=== PATIENT | female | born 1930 | race Asian ===

== ENCOUNTER 2018-09-13 12:41 | Emergency (ER) | payer OTHER, MEDICAID ==
[~2018-09-13] VITALS: Ht 152.4 cm; Wt 65.8 kg
[~2018-09-13 12:41] MED LIST: ACET-1082 PO; ALEN70TA PO; FURO-570 PO; GLU500 PO; PIOG30TA PO; POTA10TE30 PO; SITA100T8 PO
[2018-09-13 12:49] VITALS: BP 130/46
[2018-09-13] MEDS ORDERED: ASPIRIN 81 MG TAB.CHEW PO ONE (12:50)
[2018-09-13] MEDS ORDERED: NACL 0.9% 1,000 ML IV ONE (12:50)
--- NOTE | 2018-09-13 12:55 | NUR ---
88 YO FEMALE BIB FAMILY FOR RIGHT SIDED CHEST PAIN AFTER ROLLINIG OVER IN BED. AWAKE AND ALERT ON ARRIVAL. LUNGS CLEAR BL; HR EVEN AND REGULAR; PT DENIES ANY FEVER, SOB, OR COUGH AT THIS TIME; DENIES N/V/D; SKIN IS PINK/WARM/DRY; PATIENT STATES PAIN OF 3/10 AT THIS TIME; VSS; PATIENT POSITIONED FOR COMFORT; HOB ELEVATED; BEDRAILS UP X2; BED DOWN. ER MD MADE AWARE OF PT STATUS.
--- NOTE | 2018-09-13 13:00 | NUR ---
Patient being evaluated by physician at bedside.
[2018-09-13 13:22] LABS: BASOPHILS % (AUTO) 0.7 % (0.0-2.0); HEMATOCRIT 30.2 % (36-48); HEMOGLOBIN 9.4 g/dL (12.0-16.0); LYMPHOCYTES # (AUTO) 1.2 K/uL (2.5-16.5); LYMPHOCYTES % (AUTO) 25.4 % (20.5-51.1); MEAN CORPUSCULAR HEMOGLOBIN 22 pg (27-31); MEAN CORPUSCULAR HGB CONC 31 g/dL (33-37); MEAN CORPUSCULAR VOLUME 71.9 fL (80-94); MONOCYTES # (AUTO) 0.3 K/uL (0.8-1.0); MONOCYTES % (AUTO) 6.2 % (1.7-9.3); NEUTROPHILS # (AUTO) 3.2 K/uL (1.8-7.7); NEUTROPHILS % (AUTO) 66.7 % (42.2-75.2); PLATELET COUNT (AUTO) 132 K/uL (140-450); RED CELL DISTRIBUTION WIDTH 15.2 % (11.6-13.7); WHITE BLOOD COUNT (AUTO) 4.7 K/uL (4.8-10.8)
[2018-09-13 13:39] LABS: ANION GAP 11.5 (8-16); CARBON DIOXIDE 29.5 mmol/L (21-32); CHLORIDE 103 mmol/L (98-107); CREATININE 1.2 mg/dL (0.6-1.3); GLUCOSE 136 mg/dL (74-106); SODIUM SERUM 140 mmol/L (136-145); UREA NITROGEN, BLOOD 15 mg/dL (7-18)
[2018-09-13 13:44] LABS: ALBUMIN 3.4 g/dL (3.4-5.0); ASPARTATE AMINOTRANSFERASE 21 U/L (15-37); TOTAL BILIRUBIN 0.5 mg/dL (0.0-1.0)
[2018-09-13 13:49] LABS: PROTHROMBIN TIME 9.4 secs (10.8-13.4)
[2018-09-13] MEDS ORDERED: KETOROLAC 30 MG/ML VIAL IVP ONE (13:50)
--- NOTE | 2018-09-13 14:20 | NUR ---
PT IS OFF UNIT FOR X-RAY VIA [facility].
--- NOTE | 2018-09-13 14:45 | NUR ---
PT IS BACK UNIT
[2018-09-13 17:16] VITALS: BP 109/57
== END 2018-09-13 17:16 | disposition home or self-care (01) ==
LOC: MED 12:41
DX: R07.89 Other chest pain (principal); I11.0 Hypertensive heart disease with heart failure; I50.9 Heart failure, unspecified; E11.9 Type 2 diabetes mellitus without complications; Z79.899 Other long term (current) drug therapy; Z79.84 Long term (current) use of oral hypoglycemic drugs
CPT/HCPCS: 36415; 71045; 71250; 80053; 84484; 85025; 85610; 85730; 96374; 99285; J1885; Q0092; J7030

== ENCOUNTER 2022-03-18 23:04 | Emergency (ER) | payer OTHER, MEDICAID ==
[~2022-03-18] VITALS: Ht 149.9 cm; Wt 70.3 kg
[~2022-03-18 23:04] MED LIST changes: -PIOG30TA PO; +PIOG30TA51 PO; +POTA10TA70 PO; -POTA10TE30 PO
[2022-03-18 23:14] VITALS: BP 153/70
[2022-03-19] MEDS: IBUPROFEN 400 MG TAB PO ONE (00:24)
[2022-03-19 01:19] VITALS: BP 153/70
== END 2022-03-19 01:19 | disposition home or self-care (01) ==
LOC: MED 23:04
DX: M25.552 Pain in left hip (principal); E11.9 Type 2 diabetes mellitus without complications; I11.0 Hypertensive heart disease with heart failure; I50.9 Heart failure, unspecified; Z79.84 Long term (current) use of oral hypoglycemic drugs; Z79.899 Other long term (current) drug therapy
CPT/HCPCS: 73502; 99283